=== PATIENT | male | born 1965 | race Caucasian/White ===

== ENCOUNTER 2019-08-30 05:07 | Inpatient (IN) | payer OTHER ==
[~2019-08-30] VITALS: Ht 182.9 cm; Wt 75.9 kg
[2019-08-30] MEDS ORDERED: GABA300 PO (05:22)
[2019-08-30] MEDS ORDERED: Thiamine HCl100 MG PO (05:23)
[2019-08-30] MEDS ORDERED: FOLI400 PO (05:23)
[2019-08-30] MEDS ORDERED: THERA1 EACH PO (05:23)
[2019-08-30] MEDS ORDERED: MELATONIN5 M1 PO (05:24)
[2019-08-30] MEDS ORDERED: LORA1 PO (05:25)
[2019-08-30] MEDS ORDERED: FERSU300 PO (05:27)
[2019-08-30] MEDS ORDERED: METO100ER PO (05:28)
[2019-08-30] MEDS ORDERED: Kaon-Cl40 MEQ/15 PO (05:28)
[2019-08-30] MEDS ORDERED: ZESTORETIC 20-121 EA PO (05:32)
[2019-08-30] MEDS ORDERED: HYDPAM50 PO (05:34)
[2019-08-30] MEDS ORDERED: CLON.1 PO (05:35)
[2019-08-30] MEDS ORDERED: TRAZ50 PO (05:40)
[2019-08-30] MEDS ORDERED: NICO21TP TOP (05:41)
[2019-08-30 05:43] LABS: BASOPHILS ABSOLUTE AUTO 0.01 K/mm3 (0.00-0.23); BASOPHILS PERCENT AUTO 0 % (0-2); EOSINOPHILS ABSOLUTE AUTO 0.05 K/mm3 (0.00-0.68); EOSINOPHILS PERCENT AUTO 1 % (0-6); Hematocrit 26.6 % (37.0-53.0); Hemoglobin 8.3 g/dL (13.5-17.5); IMMATURE GRAN ABSOLUTE AUTO 0.03 K/mm3 (0.00-0.10); IMMATURE GRAN PERCENT AUTO 1 % (0-1); LYMPHOCYTES ABSOLUTE AUTO 1.07 K/mm3 (0.84-5.20); LYMPHOCYTES PERCENT AUTO 28 % (21-46); MONOCYTES ABSOLUTE AUTO 0.51 K/mm3 (0.16-1.47); MONOCYTES PERCENT AUTO 13 % (4-13); Mean Corpuscular HGB 25.4 pg (26.0-34.0); Mean Corpuscular HGB Conc 31.2 g/dL (31.5-36.5); Mean Corpuscular Volume 81 fL (80-100); Mean Platelet Volume 12.7 fL (9.1-12.4); NEUTROPHILS ABSOLUTE AUTO 2.21 K/mm3 (1.96-9.15); NEUTROPHILS PERCENT AUTO 57 % (41-73); RDW Coefficient Variation 21.4 % (11.7-14.2); RDW Standard Deviation 60.2 fL (35.1-46.3); Red Blood Cell Count 3.27 M/mm3 (4.30-5.90); White Blood Cell Count 3.88 K/mm3 (4.00-11.30)
[2019-08-30 06:00] LABS: Acetaminophen, Random <2.0 ug/mL (10.0-30.0); Alanine Aminotransfer (ALT/SGP 46 U/L (12-78); Albumin, Blood 3.9 g/dL (3.4-5.0); Albumin/Globulin Ratio 1.4 (0.8-1.8); Alk Phos 99 U/L (50-136); Anion Gap 11 mmol/L (6-16); Aspartate Aminotrans (AST/SGOT 118 U/L (12-37); Bilirubin, Total 0.6 mg/dL (0.1-1.0); Blood Urea Nitrogen 33 mg/dL (8-24); Bun/Creatinine Ratio 28.7 (12.0-20.0); CO2, Blood 25 mmol/L (21-32); Calcium, Blood 9.3 mg/dL (8.5-10.1); Chloride, Blood 97 mmol/L (98-108); Creatinine, Blood 1.15 mg/dL (0.60-1.20); Ethanol (Alcohol), Blood, Med <3 mg/dL; Globulin, Blood 2.8 g/dL (2.2-4.0); Glomerular Filtration Rate >60 (60-); Glucose, Blood 108 mg/dL (70-99); Platelet Count 47 K/mm3 (150-400); Potassium, Blood 3.7 mmol/L (3.5-5.5); Sodium, Blood 133 mmol/L (136-145); Total Protein, Blood 6.7 g/dL (6.4-8.2)
--- NOTE | 2019-08-30 06:55 | NUR ---
BEDSIDE REPORT FROM JC PHIPPS. ASSUMED PT CARE. PT ALTERED, CONFUSED AND HANDSY. PT IN 4 EXTREMITY SOFT RESTRAINTS. PT UNABLE TO FOLLOW DIRECTIONS. PT UNAWARE OF SURROUNDINGS.
--- NOTE | 2019-08-30 07:00 | NUR ---
16FR TEMP NASSAR PLACED. URINE COLLECTED AND SENT TO LAB.
--- NOTE | 2019-08-30 07:05 | NUR ---
VSS. ASSESSMENT CHARTED. PT CONFUSED. UNABLE TO FOLLOW DIRECTIONS. PT WITH AUDITORY AND VISUAL HALLUCINATIONS. PT ATTEMPTS TO EAT LINENS, ACTS IF HE IS SMOKING. PT THINKS HE IS AT HOME OR AT A HOTEL. REORIENTED PT TO PLACE AND SITUATION. PT BECOMES ARGUEMENTATIVE. PT WITH WRISTS AND ANKLES IN RETRAINTS. LUNG SOUNDS CLEAR AND EQUAL, NO COUGH. PULSES PRESENT AND EQUAL. CAP REFILL 3 SECONDS. NO EDEMA. NO OPEN SORES/WOUNDS NOTED. BRUISING TO RIGHT HIP, RIGHT FLANK AREA AND TO LEFT SHOULDER. PT ABLE TO MOVE ALL EXTREMITIES.
[2019-08-30 07:27] LABS: Source, Urine Clean Catch
[2019-08-30 07:33] LABS: Bilirubin, Urine Neg (Neg); Blood, Urine 1+ (Neg); Glucose Qualitative, Urine Neg (Neg); Ketones, Urine Neg (Neg); Leukocyte Esterase, Urine Neg (Neg); Nitrite, Urine Neg (Neg); Protein, Urine Neg (Neg); Specific Gravity, Urine 1.005 (1.003-1.022); Urobilinogen, Urine NORM (Normal)
[2019-08-30 07:38] LABS: Appearance, Urine Clear (Clear); Color, Urine Yellow (P-Yellow)
[2019-08-30 07:40] LABS: Bacteria Rare /hpf; Red Blood Cells, Urine 0-2 /hpf (0-2); Squamous Epithelial Cells Not Seen /hpf (Few); White Blood Cells, Urine 0-2 /hpf (0-5)
[2019-08-30 07:45] LABS: U Amphetamine Screen Not Detected; U Barbituate Screen Not Detected; U Benzodiazapine Screen DETECTED; U Buprenorphine Screen Not Detected; U Cannabinoids Screen Not Detected; U Cocaine Screen Not Detected; U Methadone Screen Not Detected; U Methamphetamine Screen Not Detected; U Opiates Screen Not Detected; U Oxycodone Screen Not Detected; U Phencyclidine Screen Not Detected; U Propoxyphene Screen Not Detected
--- NOTE | 2019-08-30 08:00 | NUR ---
DR DOWNS TO ROOM FOR EVAL. PLAN TO DC LOVENOX DUE TO LOW PLT COUNT. PLAN TO START PRECEDEX.
--- NOTE | 2019-08-30 08:50 | NUR ---
PT WITH LARGE BM. 2 OTHER STAFF MEMBERS TO ROOM TO ASSIST WITH PERICARE AND LINEN CHANGE. PT GRABS AT STAFF DURING PROCESS. ATTENDS PLACED AT THIS TIME. CLEAR, YELLOW URINE DRAINING INTO NASSAR.
--- NOTE | 2019-08-30 09:10 | NUR ---
PRECEDEX STARTED PER PHARMACY PROTOCOL.
--- NOTE | 2019-08-30 10:48 | NUR ---
RESTRAINTS FROM ANKLES REMOVED. PT RESTING WELL, RESP EVEN AN NON-LABORED. PRECEDEX INFUSING WELL TO LEFT AC. BANANA BAG INF TO RIGHT AC. ATTENDS CLEAN. ROM TO UPPER EXT DONE. PT REPOSITIONED.
--- NOTE | 2019-08-30 12:00 | NUR ---
UPDATE PT REMAINS STABLE. VSS. PT RESTING IN POSITION OF COMFORT. PT AROUSABLE TO VERBAL STIMULI. CURRENT PRECEDEX RATE 0.5MCG/KG/HR. ROM AND CIRC/SKIN CHECK TO WRISTS. PT MOVES LEGS AROUND FREELY. ATTENDS CLEAN.
[2019-08-30] MEDS ORDERED: LISINOPRIL/HCTZ PO (13:05)
[2019-08-30] MEDS ORDERED: PROM25 PO (13:09)
--- NOTE | 2019-08-30 14:00 | NUR ---
PT TOLERATING PRECEDEX WELL. AROUSES TO VERBAL STIMULI. ALERT TO SELF. PT DOSES QUICKLEY. RESTRAINTS CHECKED.
--- NOTE | 2019-08-30 16:00 | NUR ---
RSETRAINTS CHECKED. ATTENDS CLEAN. NASSAR DRAINING CLEAR YELLOW URINE. PT RESP EVEN AND NON LABORED. IV PRECEDEX AND MV INFUSING WELL.
--- NOTE | 2019-08-30 17:11 | NUR ---
UPDATE PT AWAKE AT TIMES. ABLE TO ANSWER SIMPLE QUESTIONS. PT ALERT TO PERSON, SELF AND YEAR. PT DENIES PAIN. DOSES EASILY. VSS. DISUCUSSED NEED FOR IVF WITH DR DOWNS VO FOR NS @100ML/HR RECEIVED. WILL START. PT LESS AGITATED. LESS COMBATIVE. WILL CONT RESTRAINT USE TO BILATERAL WRISTS DUE TO CONTINUED CONFUSION TO WHY HE IS HERE AND TO PROTECT LINES. POSITION CHANGED. PILLOWS REMOVED. PT LYING ON BACK.
--- NOTE | 2019-08-30 17:33 | NUR ---
NS STARTED PER EMAR. BANANA BAG COMPLETE. LINE TO LEFT AC FLUSHED. NS AND PRECEDEX INF TO RIGHT AC.
--- NOTE | 2019-08-30 18:50 | NUR ---
SHIFT SUMMARY PT IMPROVED FROM BEGINING OF SHIFT. LUNG SOUNDS REMAIN CLEAR, PULSES PRESENT AND EQUAL THROUGHTOUT. ABD SOFT AND NON TENDER. BS EQUAL. NO EDEMA TO EXT. NO NEW SKIN ISSUES. PT HAS MOMENTS OF LUCIDITY, DOSES EASILY. ALERT TO SELF AND YEAR BUT NOT SITUATION OR LOCATION. SOFT WRIST RESTRAINTS IN PLACE, NS INFUSING AT 100ML/HR, PRECEDEX INFUSING CURRENTLY AT 0.5MCG/KG/HR. PT TOLERATING INF WELL. VS HAVE BEEN STABLE. WILL REPORT TO ONCOMING SHIFT.
--- NOTE | 2019-08-30 19:32 | NUR ---
ASSUMED CARE OF PT AT 1900. REPORT RECEIVED AT BEDSIDE. PT PRESENTS IN BED SLEEPING. PT CURRENTLY ON PRECEDEX DRIP AT 0.5 MCG'S. PT IN NO APPARENT DISTRESS AT THIS TIME. VSS. WILL REVIEW CHART AND PLAN OF CARE FOR THIS PT.
--- NOTE | 2019-08-30 20:12 | NUR ---
PT AWAKENS ON HIS OWN. IS ABLE TO STATE HIS BIRTHDAY. DOES NOT KNOW WHERE HE IS AT THE TIME. REQUESTS TO HAVE "STRAP LOOSENED SO I CAN SMOKE A CIGARRETTE." EXPLAINED TO PT THAT HE WAS IN THE HOSPITAL, AND THAT NO SMOKING IS ALLOWED. DID OBTAIN NICOTINE PATCH AND PLACE ON RIGHT SHOULDER. PT WAS ABLE TO SWALLOW HIS HS MEDICATIONS. DID NEED SOME COACHING DURING PROCESS. NO COUGH NOTED. PT FALLS BACK TO SLEEP AFTER MEDS. WILL CONTINUE TO MONITOR PT.
--- NOTE | 2019-08-31 | NUR ---
HAVE REMOVED PT'S SOFT WRIST RESTRAINTS. PT IS ABLE TO AWAKEN, AND ANSWER SIMPLE QUESTIONS. STILL REMAINS UNSURE OF WHERE HE IS, AND HOW HE ENDED UP IN THE HOSPITAL. PT HAS NOT MADE ANY ATTEMPTS TO PULL AT HIS LINES, OR TUBES. HAVE PLACED THE BED ALARM ON FOR PT'S SAFETY.
[2019-08-31 03:54] LABS: Hematocrit 27.1 % (37.0-53.0); Hemoglobin 8.4 g/dL (13.5-17.5); Mean Corpuscular HGB 26.3 pg (26.0-34.0); Mean Platelet Volume 11.4 fL (9.1-12.4); Platelet Count 53 K/mm3 (150-400); RDW Coefficient Variation 21.2 % (11.7-14.2); RDW Standard Deviation 62.2 fL (35.1-46.3); White Blood Cell Count 2.41 K/mm3 (4.00-11.30)
[2019-08-31 03:57] LABS: Mean Corpuscular Volume 85 fL (80-100)
[2019-08-31 04:10] LABS: Alanine Aminotransfer (ALT/SGP 44 U/L (12-78); Albumin, Blood 3.2 g/dL (3.4-5.0); Albumin/Globulin Ratio 1.2 (0.8-1.8); Alk Phos 80 U/L (50-136); Anion Gap 8 mmol/L (6-16); Aspartate Aminotrans (AST/SGOT 91 U/L (12-37); Bilirubin, Total 0.4 mg/dL (0.1-1.0); Blood Urea Nitrogen 15 mg/dL (8-24); Bun/Creatinine Ratio 19.1 (12.0-20.0); CO2, Blood 25 mmol/L (21-32); Calcium, Blood 8.2 mg/dL (8.5-10.1); Chloride, Blood 107 mmol/L (98-108); Creatinine, Blood 0.79 mg/dL (0.60-1.20); Globulin, Blood 2.6 g/dL (2.2-4.0); Glomerular Filtration Rate >60 (60-); Glucose, Blood 92 mg/dL (70-99); Potassium, Blood 3.4 mmol/L (3.5-5.5); Sodium, Blood 140 mmol/L (136-145); Total Protein, Blood 5.8 g/dL (6.4-8.2)
--- NOTE | 2019-08-31 06:29 | NUR ---
PT HAS BEEN ABLE TO REST THIS NIGHT. CONTINUES ON PRECEDEX AT 0.5 MCG/KG/HR. WAS ABLE TO TAKE PO MEDS WITHOUT COUGH. PT FOLLOWS COMMANDS AND IS REDIRECTABLE AT THIS TIME. GAVE DOSE OF LIBRIUM EARLIER IN SHIFT. CONTINUING WITH BED ALARM FOR PT SAFETY. WILL CONTINUE TO MONITOR PT, AND WILL REPORT OFF TO ONCOMING RN.
--- NOTE | 2019-08-31 06:55 | NUR ---
REPORT AND BEDSIDE ROUNDING WITH AMELIA PHIPPS. ASSUMED PT CARE AT THIS TIME. PT SLEEPING. RESP EVEN AND NON LABORED. PRECEDEX APPEARS TO BE INFUSING W/O ISSUE. PT OUT OF ALL RESRTAINTS. ARMS IN POSITION OF COMFORT.
--- NOTE | 2019-08-31 07:42 | NUR ---
DR DOWNS TO ROOM FOR EVAL. PLAN TO TRANSITION PT OFF PRECEDEX, ADVANCE DIET TOLERATED AND MOVE PT TO PCU IF HE DOES WELL.
--- NOTE | 2019-08-31 07:50 | NUR ---
ASSESSMENT CHARTED. PT ALERT AND ORIENTED TO SELF, YEAR AND THAT HE IS IN A HOSPITAL. PT DENIES PAIN, PRECEDEX INFUSING AT 0.5MCG/KG/HR. PT ABLE TO FOLLOW DIRECTIONS AND VOICE NEEDS. NO EDEMA NOTED. ATTENDS CLEAN. LUNGS CLEAR, BOWEL SOUNDS PRESENT AND EQUAL. PT DENIES NAUSEA. VSS. PT BOOSTED UP IN BED, ASSISTED TO SITTING UP POSITION. BREAKFAST PROVIDED.
--- NOTE | 2019-08-31 08:56 | NUR ---
MULT MEDS HELD THIS AM DUE TO PT BP. 85/62, PT ALERT AND TALKING, MAP 68. PRECEDEX DECREASED TO 0.3MCG/KG/HR. CHARGE NURSE AWARE. PT HAS NO COMPLAINTS. RECLINED AT THIS TIME.
--- NOTE | 2019-08-31 10:50 | NUR ---
PRECEDEX PAUSED TO SEE HOW PT DOES. PT TOLERATING PO, AXO TO PERSON, PLACE AND DATE. PT ASSISTED UP TO COMMODE FOR BM. PT AMB WITH 1 PERSON ASSIST. SOMEWHAT UNSTEADY. PT DENIES NAUSEA, DENIES CP, DENIES DIZZINESS. STATES "I FEEL LIKE IM IN A FOG". EXPLAINED TO PT THAT DUE TO MEDS THAT IS WHY HE FEELS THIS WAY. PT UNDERSTANDS.
--- NOTE | 2019-08-31 11:10 | NUR ---
ASSISTED PT TO [facility]. COFFEE AND CRACKERS PROVIDED.
--- NOTE | 2019-08-31 11:48 | NUR ---
UPDATE VSS. PT TOLERATING SITTING UP WELL. LUNCH PROVIDED. READING MATERIAL PROVIDED. PT DENIES PAIN/DIZZINESS. CIWA DOCUMENTED.
--- NOTE | 2019-08-31 13:13 | NUR ---
SPOKE WITH DR DOWNS TO UPDATE PT. ORDERS TO MOVE PT TO MEDICAL FLOOR, ASHLEY HAN AND ASHLEY NASSAR. CHARGE NURSE AWARE. LEANNE SUP NOTIFIED.
--- NOTE | 2019-08-31 13:24 | NUR ---
MADAY RAMIREZ, VSS, AWAITING MED BED ASSIGNMENT.
--- NOTE | 2019-08-31 13:55 | NUR ---
COFFEE AND WARM BLANKET PROVIDED TO PT. ROOM ASSIGNMENT RECEIVED. 360.
--- NOTE | 2019-08-31 14:20 | NUR ---
REPORT TO MADDIE MATT ON MEDICAL FLOOR.
--- NOTE | 2019-08-31 14:30 | NUR ---
PT TO MEDICAL FLOOR VIA RECLINER. ALL BELONGINGS TO FLOOR WITH PT.
--- NOTE | 2019-08-31 18:53 | NUR ---
PT. UP IN CHAIR FINISHING DINNER, CIWA WAS UP TO 8 AND 50 OF LIBRIUM GIVE PO. PT. PLEASANT AND COOPERATIVE BUT FORGETFUL AT TIME.
--- NOTE | 2019-09-01 05:41 | NUR ---
SHIFT SUMMARY: 53 Y/O MALE ADMITTED FOR ALCOHOL WITHDRAWL SYMPTOMS. HAS BEEN DOING WELL THROUGHOUT THE NIGHT. CIWA SCORE HAS AVERAGED 4-6 ALL NIGHT EXCEPT WHEN SLEEPING SCORE IS A 0. HE HAS BEEN VERY PLEASANT AND COOPERATIVE, USING HIS CALL LIGHT WHEN NEEDED. APPETITE IS GOOD HE SNACKED ALL NIGHT. OUTPUT IS NORMAL. BED ALARM AND CHAIR ALARM HAVE BEEN ON AND NOT SOUNDED ALL NIGHT. LIBRIUM WAS USED X2 FOR HIS TREMORS AND CRAVINGS. NO OTHER ACUTE CHANGES TO NOTE THIS SHIFT.
[2019-09-01] MEDS ORDERED: TUMS500 MG PO (10:59)
[2019-09-01] MEDS ORDERED: CHLO10 PO (11:00)
--- NOTE | 2019-09-01 11:50 | NUR ---
PT. TRANSFERRED BACK TO [facility], DISCHARGE INSTRUCTIONS FAXED TO [facility] AND PT. GIVEN WRITTEN DISCHARGE INSTRUCTIONS. TRANSPORTED VIA [employer].
== END 2019-09-01 11:49 | disposition home or self-care (01) | DRG 897 ==
LOC: ER 05:07 → ICUW 05:57 → MEDS 08-31 14:31 → ENPENDDIS 09-01 09:54 → MEDS 09-01 11:49
PROVIDERS: Emergency Medicine; Internal Medicine; ADMIT Internal Medicine
DX: F10.239 Alcohol dependence with withdrawal, unspecified (principal); I10 Essential (primary) hypertension; E87.6 Hypokalemia; F17.210 Nicotine dependence, cigarettes, uncomplicated; G62.9 Polyneuropathy, unspecified; D50.9 Iron deficiency anemia, unspecified; D69.6 Thrombocytopenia, unspecified
CPT/HCPCS: 51702; 80053; 81001; 82728; 83540; 83550; 83735; 84443; 85025; 85027; 93005; 93010; 96361; 96374; 99285-25; G0480; J1650; J2060; J3411; J3475; J7030; J7042